=== PATIENT | female | born 1960 | race African-American/Black ===

== ENCOUNTER 2023-12-21 08:53 | Observation (INO) | payer MEDICARE ==
[~2023-12-21] VITALS: Ht 157.5 cm; Wt 95.0 kg
[2023-12-21] MEDS ORDERED: AMLO10TA PO (09:04)
[2023-12-21] MEDS ORDERED: METO1TAB7 PO (09:04)
[2023-12-21] MEDS ORDERED: BENA10TA PO (09:04)
[2023-12-21 09:50] LABS: BASO % 0.7 % (0.0-1.0); EOS # 0.1 10^3/uL (0.0-0.5); EOS % 2.3 % (0.0-3.0); HEMATOCRIT 43.6 % (36.0-47.0); HEMOGLOBIN 14.2 g/dl (12.0-15.5); LYMPH % 33.5 % (24.0-44.0); MEAN CORPUSCULAR HEMOGLOBIN 29.1 pg (27.0-33.0); MEAN CORPUSCULAR HGB CONC 32.6 g/dl (32.0-36.5); MEAN CORPUSCULAR VOLUME 89.3 fl (80.0-96.0); MONO # 0.7 10^3/uL (0.0-0.8); NEUTROPHILS # 3.1 10^3/uL (1.5-8.5); NEUTROPHILS % 52.3 % (36.0-66.0); PLATELET COUNT, AUTOMATED 283 10^3/uL (150-450); RED BLOOD COUNT 4.88 10^6/uL (4.00-5.40)
[2023-12-21 10:20] LABS: ETHYL ALCOHOL (ETHANOL) < 0.003 % (0.000-0.010)
[2023-12-21 10:21] LABS: ALKALINE PHOSPHATASE 90 U/L (46-116); ALT/SGPT 21 U/L (7.0-40); AST/SGOT 13 U/L (<34); BILIRUBIN,DIRECT 0.2 MG/DL (<0.4); BILIRUBIN,TOTAL 0.9 MG/DL (0.3-1.2); BLOOD UREA NITROGEN 11 MG/DL (9-23); CALCIUM LEVEL 9.5 MG/DL (8.3-10.6); CARBON DIOXIDE LEVEL 30 MMOL/L (20-31); CHLORIDE LEVEL 107 MMOL/L (98-107); CREATININE FOR GFR 0.77 MG/DL (0.55-1.30); GLOMERULAR FILTRATION RATE > 60.0 (>45); GLUCOSE, FASTING 136 MG/DL (74-106); POTASSIUM SERUM 3.9 MMOL/L (3.5-5.1); SODIUM LEVEL 143 MMOL/L (136-145); TOTAL PROTEIN 7.6 G/DL (5.7-8.2)
[2023-12-21 10:22] LABS: SALICYLATE LEVEL < 3.0 MG/DL (<30)
[2023-12-21 10:24] LABS: THYROID STIMULATING HORMONE 1.248 uIU/ML (0.55-4.78)
[2023-12-21 11:26] LABS: AMPHETAMINES LEVEL URINE NEGATIVE (NEGATIVE); BARBITURATES URINE NEGATIVE (NEGATIVE); BENZODIAZEPINES URINE NEGATIVE (NEGATIVE)
[2023-12-21 11:27] LABS: CANNABINOIDS URINE NEGATIVE (NEGATIVE); COCAINE METABOLITE URINE NEGATIVE (NEGATIVE); METHADONE URINE NEGATIVE (NEGATIVE); OPIATES URINE NEGATIVE (NEGATIVE); PHENCYCLIDINE URINE NEGATIVE (NEGATIVE)
[2023-12-21] MEDS: MIDAZOLAM INJ 2MG/2ML VIAL IV STA ×2 (12:00→12:21)
[2023-12-21] MEDS ORDERED: hydrALAZINE 20MG/ML 1ML VIAL IV PRN (14:10)
[2023-12-21] MEDS ORDERED: ASPIRIN 325 MG TAB PO SCH (14:10)
[2023-12-21 14:47] LABS: CHOLESTEROL LEVEL 286 MG/DL (<200); CHOLESTEROL RISK RATIO 6.24 (<5); HDL CHOLESTEROL 45.8 MG/DL (>40); LDL CHOLESTEROL 206.4 MG/DL (<100); NON-HDL-C 240.2 MG/DL; TRIGLYCERIDES LEVEL 169 MG/DL (<150)
[2023-12-21 15:22] LABS: HEMOGLOBIN A1c 5.9 % (4.0-6.0)
[2023-12-21] MEDS ORDERED: CYCL-707 PO (16:48)
[2023-12-21] MEDS ORDERED: HOME MED LIST COMPLETE! XX SCH (16:50)
[2023-12-21 20:35] VITALS: BP 170/104; TEMP 97.1; O2SAT 96
[2023-12-21] MEDS: CYCLOBENZAPRINE 10MG TABLET PO SCH (20:35)
[2023-12-21] MEDS: METOPROLOL SUCC (TopROL XL) 50MG **XL** TAB PO SCH (20:45)
[2023-12-21] MEDS: ATORVASTATIN 20 MG TAB PO SCH (20:46)
[2023-12-21 23:12] VITALS: BP 112/60; TEMP 98; O2SAT 98
[2023-12-22] VITALS (8 sets, daily range): BP systolic 106–180; BP diastolic 60–100; TEMP 97.5–98; O2SAT 90–97
[2023-12-22 05:48] LABS: HEMATOCRIT 38.8 % (36.0-47.0); HEMOGLOBIN 12.7 g/dl (12.0-15.5); MEAN CORPUSCULAR HEMOGLOBIN 29.1 pg (27.0-33.0); MEAN CORPUSCULAR HGB CONC 32.7 g/dl (32.0-36.5); PLATELET COUNT, AUTOMATED 236 10^3/uL (150-450); RED BLOOD COUNT 4.36 10^6/uL (4.00-5.40); WHITE BLOOD COUNT 5.2 10^3/uL (4.0-10.0)
[2023-12-22 06:10] LABS: BLOOD UREA NITROGEN 11 MG/DL (9-23); CALCIUM LEVEL 9.3 MG/DL (8.3-10.6); CARBON DIOXIDE LEVEL 30 MMOL/L (20-31); CHLORIDE LEVEL 106 MMOL/L (98-107); CREATININE FOR GFR 0.76 MG/DL (0.55-1.30); GLOMERULAR FILTRATION RATE > 60.0 (>45); GLUCOSE, FASTING 124 MG/DL (74-106); POTASSIUM SERUM 3.9 MMOL/L (3.5-5.1); SODIUM LEVEL 142 MMOL/L (136-145)
[2023-12-22] MEDS: ASPIRIN 81MG ENTERIC TABLET PO SCH (08:33)
[2023-12-22] MEDS: LOSARTAN 25 MG TAB PO SCH (08:33)
[2023-12-22] MEDS: MORPHINE 2 MG/ML 1ML VIAL IV PRN (08:36)
[2023-12-22] MEDS: ENOXAPARIN 40MG/0.4ML SYRINGE (J1650 PER 10MG) SC SCH (08:36)
[2023-12-22] MEDS ORDERED: ISOVUE-370 76% 100ML VIAL As Ordered ONE (09:11)
[2023-12-22] MEDS: DOCUSATE SODIUM 100MG CAPSULE PO SCH (12:30)
[2023-12-22] MEDS: MIRALAX *UNIT DOSE* 17GM PACKET PO SCH (12:30)
[2023-12-22] MEDS: DICYCLOMINE 10 MG CAP PO ONE (13:53)
[2023-12-22] MEDS: LOSARTAN 25 MG TAB PO ONE (13:53)
[2023-12-22] MEDS ORDERED: MIRA33506 PO (15:35)
[2023-12-22] MEDS ORDERED: ASPI81TAEC PO (15:35)
[2023-12-22] MEDS ORDERED: DICY1CAP8 PO (15:35)
[2023-12-22] MEDS ORDERED: COLA100C5 PO (15:35)
[2023-12-22] MEDS ORDERED: AMLO1TAB25 PO (15:35)
[2023-12-22] MEDS ORDERED: LOSA-527 PO (15:35)
[2023-12-22] MEDS ORDERED: ATOR80TA59 PO (15:35)
== END 2023-12-22 16:48 | disposition home or self-care (01) ==
LOC: M ED 08:53 → INTOOBSV 14:03 → M ED INP 14:03 → ENRESERV 20:09 → M PCU 20:29
PROVIDERS: ADMIT Internal Medicine; ATTEND Internal Medicine
DX: R47.1 Dysarthria and anarthria (principal); R29.810 Facial weakness; R29.701 NIHSS score 1; R51.9 Headache, unspecified; W22.8XXA Striking against or struck by other objects, initial encounter; Y92.512 Supermarket, store or market as the place of occurrence of the external cause; Y93.89 Activity, other specified; Y99.8 Other external cause status; I16.9 Hypertensive crisis, unspecified; E78.5 Hyperlipidemia, unspecified; I66.02 Occlusion and stenosis of left middle cerebral artery; I67.82 Cerebral ischemia; K57.92 Diverticulitis of intestine, part unspecified, without perforation or abscess without bleeding; Z79.899 Other long term (current) drug therapy; Z79.82 Long term (current) use of aspirin; Z82.49 Family history of ischemic heart disease and other diseases of the circulatory system
CPT/HCPCS: 36415; 70450; 70544; 70547; 70551; 74177; 80047; 80048; 80061; 80076; 80143; 80307; 82077; 82140; 82607; 83036; 83930; 84425; 84443; 85025; 85027; 92526; 92610; 93005; 93041; 93880; 94760; 96374; 97161; 99285; G0378; J2250; Q9967